=== PATIENT | female | born 1930 | race Caucasian/White ===

== ENCOUNTER 2016-06-12 14:00 | Inpatient (IN) | payer MEDICARE, BC ==
[~2016-06-12] VITALS: Ht 142.2 cm; Wt 40.7 kg
--- NOTE | ~2016-06-12 | OR ---
[facility] 85 Y [address] ROOM: [place] [address] LOCATION: G3N ADMIT DATE: 06/12/2016 OR/Procedure Report DISCHARGE DATE: FAMILY PHYSICIAN: PHYSICIAN, UNKNOWN ATTENDING PHYSICIAN: Myra FONTANA SURGEON: Durga James MD VIDEO GAME CREATOR: Eren Tirado CST/REFRIGERATOR REPAIR TECHNICIAN and Moshe Portillo. DATE OF PROCEDURE: 06/13/2016 PREOPERATIVE DIAGNOSES: Supracondylar right distal femoral periprosthetic fracture, rheumatoid arthritis. Generalized osteopenia. Well-fixed, well- aligned, previously well-functioning right total knee arthroplasty. POSTOPERATIVE DIAGNOSES: Supracondylar right distal femoral periprosthetic fracture, rheumatoid arthritis. Generalized osteopenia. Well-fixed, well- aligned, previously well-functioning right total knee arthroplasty. PROCEDURE PERFORMED: Open reduction and internal fixation of right distal femur supracondylar periprosthetic fracture. ANESTHESIA: General endotracheal anesthesia. ESTIMATED BLOOD LOSS: Less than 20 mL. TOURNIQUET TIME: Approximately 1 hour. IMPLANTS: Synthes right lateral distal femoral locking plate and multiple screws. COMPLICATIONS: None. SPECIMEN: None. INDICATION FOR PROCEDURE: Ms. Dove is an 85-year-old female who underwent a primary right total knee arthroplasty approximately [address] Fallon. This fracture occurred when the patient's leg "gave out," she was standing up from the toilet. She believes that the leg fractured before she fell. She had been experiencing preexisting right lower extremity radicular symptoms and has been in the midst of a workup for associated lumbar spine pathology and was scheduled to have an epidural steroid injection with Dr. Fallon later this week. The fracture propagates to within a few centimeters of the femoral component. A large femoral cement plug is noted preoperatively, and we hope to make use of this for fixation (given the extremely compromised qualitative and quantitative residual distal femoral bone stock). PATIENT'S NAME: KENNETH DOVE [facility] AGE: 85 Y [address] ROOM: [place] [address] LOCATION: [facility] ADMIT DATE: 06/12/2016 OR/Procedure Report DISCHARGE DATE: FAMILY PHYSICIAN: PHYSICIAN, UNKNOWN ATTENDING PHYSICIAN: Myra FONTANA Risks, benefits, limitations, and alternatives to this procedure have been thoroughly reviewed with the patient and her family members. We have also discussed potential adverse sequelae of the injury itself. We have specifically reviewed risks and implications of infection, deep venous thrombosis, pulmonary embolism, mortality, neurovascular compromise, malunion, nonunion, and potential need for salvage with distal femoral replacement rotating hinge arthroplasty. In fact, informed consent was granted prior to this procedure to undergo a distal femoral replacement arthroplasty if the fracture could not be adequately reduced and stabilized. DESCRIPTION OF PROCEDURE: The patient positioned supine after administration of anesthesia and prophylactic antibiotics. A well-padded pneumatic tourniquet was placed around her right proximal thigh, and her right lower extremity was prepped and draped with vigilant sterile technique. Fluoroscopic examination under anesthesia demonstrated approximately 5 cm of residual distal femur still affixed to the medial aspect of the prosthesis and approximately 4 cm of residual bone affixed to the lateral aspect of the femoral component. There was minimal comminution. There was no evident lytic lesion. The right lower extremity was elevated and exsanguinated with an Esmarch wrap and the pneumatic tourniquet was inflated. It should be noted that the patient is extremely short-statured. It is also noted that the patient is on prednisone and has been on chronic prednisone in the past (despite a recent several year hiatus off prednisone). The distal femur was approached through a direct lateral longitudinal incision. The underlying iliotibial band was sharply divided in line with the overlying skin incision. The vastus lateralis was mobilized off the intermuscular septum. Perforating vessels were vigilantly protected. The plate was first affixed to the distal fragment using the central screw hole over a guidewire set parallel to the articular surface at the level of the epicondyles. The plate was confirmed to be optimally reduced to the distal fragment. Supplemental distal fixation consisted of four additional locking screws. The distal fragment was subsequently reduced anatomically relative to the proximal fragment. Proximal fixation consisted of a single nonlocking bicortical screw followed by 3 additional bicortical locking screws. With the fracture anatomically reduced and stabilized, the patient was noted to have a 10-degree flexion contracture. Upon further consultation with the patient's family, her informs me that she had, in fact, developed a PATIENT'S NAME: KENNETH DOVE [facility] AGE: 85 Y [address] ROOM: [address] [address] LOCATION: [facility] ADMIT DATE: 06/12/2016 OR/Procedure Report DISCHARGE DATE: FAMILY PHYSICIAN: PHYSICIAN, UNKNOWN ATTENDING PHYSICIAN: Myra FONTANA significant flexion contracture subsequent to her right total knee arthroplasty. Optimal reduction and optimal position of all hardware was confirmed under AP, lateral, and oblique fluoroscopic imaging. The incision was thoroughly irrigated with bacteriostatic pulsatile saline lavage at this point as well as several times throughout the case. The iliotibial band was closed with multiple simple interrupted and [id number] interrupted #1 Vicryl sutures. The skin was closed with simple deep interrupted 0 Vicryl followed by superficial buried interrupted 2-0 Vicryl followed by surgical ernestina. The dressings consisted of Xeroform gauze followed by sterile gauze, ABD pads, and an Abilio wrap followed by a well-padded knee immobilizer. POSTOPERATIVE REHABILITATION PLAN: Nonweightbearing. No range of motion for one month. Immobilizer off when supine in bed. Immobilizer on at all other times. Strict heel decubitus ulcer prophylaxis with pillow behind the calf at all time and egg crate pad behind heel at all times. MD LORENA SMITH/shanta /[id number] d: 06/14/16 0639 t: 06/16/16 1750, OPERATIVE SUMMARY
--- NOTE | ~2016-06-12 | HP ---
PATIENT'S NAME: ANUJA LIRAORES Jono [facility] AGE: 85 Y [address] ROOM: [place] [address] LOCATION: [facility] ADMIT DATE: 06/12/2016 History & Physical DISCHARGE DATE: FAMILY PHYSICIAN: PHYSICIAN, UNKNOWN ATTENDING PHYSICIAN: Myra FONTANA DATE OF SERVICE: CHIEF COMPLAINT: Right femoral fracture. HISTORY OF PRESENT ILLNESS: The patient is an 85-year-old female with past medical history of rheumatoid arthritis, who presents here from [facility] in [place] with distal femoral fracture, right-sided. The patient reports that today she was at bathroom and she felt a sensation of pop and had a fall. She was unable to bear on her right side and was taken to [facility]. In the emergency department, she had an x-ray that shows distal femoral fracture of the right. The patient also had a CT lumbar and pelvis to further investigate other fracture. The CT of lumbar and pelvis did not show any acute fracture. The patient was transferred to our hospital for possible surgical intervention. The patient currently denies chest pain, shortness of breath, abdominal pain, nausea, vomiting, fever, chills, or cough. The patient reports that she lives at home, a farm house, and is moderately active at home. She reports that she is active at home and able to walk 2-3 flights of stairs a day without any shortness of breath or chest pain. She described that the only thing that keep her from being more active is her arthritic pain. Of note, the patient has had recent history of cholecystitis. She was admitted in the hospital at [facility] and has had extensive workup including cardiac ones, which yielded negative cardiac workup. She was diagnosed with cholecystitis on what it to seems appears to be secondary to ultrasound. The patient was discharged from [facility] in stable condition, and was told to be on low fat diet. MEDICATIONS: 1. Tramadol. 2. Lipitor 10 mg daily. SURGICAL HISTORY: Has had a couple of knee surgeries in the past and hip surgery. FAMILY HISTORY: 1. Mother had breast cancer. PATIENT'S NAME: ANUJA LIRAORES Jono [facility] AGE: 85 Y [address] ROOM: [place] [address] LOCATION: [facility] ADMIT DATE: 06/12/2016 History & Physical DISCHARGE DATE: FAMILY PHYSICIAN: PHYSICIAN, UNKNOWN ATTENDING PHYSICIAN: Myra FONTANA 2. Father had Alzheimer's. SOCIAL HISTORY: She does not drink or smoke. She lives in a farm house, she lives with her . ALLERGIES: SHE IS ALLERGIC TO IBUPROFEN AND TYLENOL AND EXCEDRIN. REVIEW OF SYSTEMS: All review of systems was evaluated, all negative except what is stated in HPI. PHYSICAL EXAMINATION: VITAL SIGNS: Vital signs stable. GENERAL: The patient is alert and oriented, in no acute distress. HEENT: Head: Atraumatic, normocephalic. Eyes: Extraocular muscles intact. Sclerae nonicteric. NECK: No JVD. Supple. CHEST: Clear to auscultation bilaterally. No rhonchi, rales, or wheezes. HEART: Regular rate and rhythm. Normal S1, S2. No murmur, rubs, or gallops. ABDOMEN: Soft, nontender, and nondistended. Bowel sounds present. SKIN: Warm to touch. COMPUTER OPERATIONS SUPERVISOR: Alert and oriented x3. Motor and sensory grossly intact. MUSCULOSKELETAL: Unable to move around her right lower extremity due to pain. DATA: Lab drawn today from [facility]: White blood cell count of 9.89, hemoglobin of 12.6, and platelets of 460. Sodium of 142, potassium of 3.3, chloride of 107, CO2 of 24, BUN of 16, and creatinine 0.6. ASSESSMENT AND PLAN: The patient is an 85-year-old female with past medical history of rheumatoid arthritis, who presents here with right distal femoral fracture. 1. Right distal femoral fracture. X-ray done at [facility] shows right femur distal fracture. The patient currently is being placed on PLANNING INTERN pump for pain control. The patient's comorbidity currently is only rheumatoid arthritis. The patient does not have history of hypertension, history of coronary artery disease, heart failure, and arrhythmia. We will acquire a 12-lead EKG. The patient is low risk factor for cardiac event for the proposed moderate-risk factor surgery. The patient understands the risk factors. Except for EKG, there is no more workup needed for surgery. The patient is stable for surgery. 2. Hypokalemia. We will give potassium supplement. 3. Rheumatoid arthritis. The patient is stable, the patient is currently PATIENT'S NAME: [facility] AGE: 85 Y [address] ROOM: [address] [address] LOCATION: [facility] ADMIT DATE: 06/12/2016 History & Physical DISCHARGE DATE: FAMILY PHYSICIAN: PHYSICIAN, UNKNOWN ATTENDING PHYSICIAN: Myra FONTANA not taking any medication. Has in the past been on Rituxan for her rheumatoid arthritis, but has been off it for a while. We will continue to follow clinically. 4. Hyperlipidemia. Continue Lipitor. 5. Pain. Acute pain secondary to fracture on PLANNING INTERN pump. Greater than 30 minutes was spent on patient's care. I have reviewed the chart and lab works. Assessment and plan was discussed with the patient and family. The patient is full code on admission. MD RAMÓN JOSEPH/shanta /[id number] D: [id number] T: [id number] HISTORY & PHYSICAL
--- NOTE | ~2016-06-12 | CON ---
PATIENT'S NAME: KENNETH DOVE [facility] AGE: 85 Y [address] ROOM: [address] [address] LOCATION: G3N ADMIT DATE: 06/12/2016 Consultation DISCHARGE DATE: FAMILY PHYSICIAN: PHYSICIAN, UNKNOWN ATTENDING PHYSICIAN: Myra HESTER DATE OF CONSULTATION: 06/12/2016 REFERRING PHYSICIAN: KIMANI REYNOLDS MD HISTORY OF PRESENT ILLNESS: Dr. Hester has requested that I provide an inpatient consultation on this 85- year-old female who was transferred from an outlying facility in [place] after having been diagnosed with a right distal femur periprosthetic fracture. The patient was referred to me by Dr. Giordano who had had the patient referred to him by Dr. Fallon who had been called by the hospital in [place]. Dr. Fallon was called initially due to the fact that he replaced Ms. Dove's right knee 1 year ago and due to the fact that he has been caring for the patient's preexisting right lower extremity discomfort and dysfunction. Dr. Fallon referred the patient to Dr. Giordano due to the complexity of the case. Dr. Giordano referred the patient to me due to concerns that this patient might require a distal femoral replacement rotating hinge revision knee arthroplasty (based upon the qualitative and quantitative bone deficits at the residual distal femur). The patient reports that analgesia has been adequate. Her knee recovered well after her knee replacement 1 year ago. However, she has been experiencing right hip and thigh discomfort over the past several months and a vague sense of weakness in the right lower extremity. She was evaluated by Dr. Fallon last week. Dr. 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 Arrangements were made for the patient to follow up with Dr. Fallon later this week for a lumbar epidural steroid injection. Her preexisting right lower extremity discomfort and dysfunction became severe enough last week that she started to use a wheelchair. Prior to that, she had been using a cane. Of note, none of this pain was focused at the right knee. The patient states that she felt a spontaneous "snap" at her right knee while she was getting off the toilet this morning. The leg had been feeling progressively "weak" the night before. She was unable to get up. She states that her right leg "buckled underneath me." She denies pain elsewhere as a result of the incident. Her past medical history is significant for longstanding rheumatoid arthritis. She was on Rituxan until 2 years ago. She had been on prednisone for many years before that. Prednisone was restarted 1 week ago. She had been off PATIENT'S NAME: KENNETH DOVE [facility] AGE: 85 Y [address] ROOM: [address] [place] [id number] LOCATION: [facility] ADMIT DATE: 06/12/2016 Consultation DISCHARGE DATE: FAMILY PHYSICIAN: PHYSICIAN, UNKNOWN ATTENDING PHYSICIAN: Myra HESTER prednisone for several years prior to starting prednisone 1 week ago. Her material scheduler has been Dr. Sánchez over the past few decades. Due to Dr. Sánchez's relocation, she recently saw an unspecified material scheduler in [place], [place]. She does not recall the name of this material scheduler. She has seen him only on one occasion. She has not been on any antirheumatoid medications (except for prednisone) over the last 2 years. Again, she had been off prednisone for at least 2 years prior to reinitiating it 1 week ago. ALLERGIES: TYLENOL, EXCEDRIN, AND IBUPROFEN. MEDICATIONS ON ADMISSION: 1. Prednisone. 2. Lipitor. 3. Ultram. 4. Ativan. 5. Folic acid. 6. Aloe vera. PAST MEDICAL HISTORY: Significant for rheumatoid arthritis and anemia. PAST SURGICAL HISTORY: Open reduction and internal fixation, left hip (performed in [place] by Dr. Jovel many years ago). Right total hip arthroplasty (performed in [place] by Dr. Lilly several years ago). Right total knee arthroplasty (performed by Dr. Fallon 1 year ago). SOCIAL HISTORY: The patient lives in a private residence with her in [place]. She has been using a cane over the past several months, but converted to a wheelchair last week due to putative progressive lumbar spine disease (and associated preexisting right lower extremity discomfort and weakness). She is accompanied this evening by her and son. Nonsmoker. REVIEW OF SYSTEMS: She denies chest pain or shortness of breath. She denies history of deep venous thrombosis or pulmonary embolism. She denies numbness or paresthesias in her right lower extremity. She denies pain in her other 3 extremities as a result of the fall. She has preexisting discomfort and deformity in all digits of both hands associated with her longstanding rheumatoid arthritis. PHYSICAL EXAMINATION: PATIENT'S NAME: KENNETH DOVE [facility] AGE: 85 Y [address] ROOM: [place] [address] LOCATION: [facility] ADMIT DATE: 06/12/2016 Consultation DISCHARGE DATE: FAMILY PHYSICIAN: PHYSICIAN, UNKNOWN ATTENDING PHYSICIAN: Myra HESTER GENERAL: The patient is a short-statured, slender, elderly female, who is in no distress. VITAL SIGNS: Respiratory rate 16 and nonlabored. EXTREMITIES: There is swelling and tenderness at the supracondylar region of the right distal femur. There is a well-healed midline incision at the right knee. There is no erythema or abnormal warmth at the right knee. There is no swelling or tenderness at the right calf or right ankle. 1+ dorsalis pedis pulse. There is no peripheral edema in the right lower extremity. She is able to actively dorsiflex and plantar flex the right ankle with 4/5 motor strength. There are no active skin lesions at the right thigh or knee. IMAGING DATA: Outside oblique radiographs of the right knee as well as AP and lateral radiographs of the entire right femur (obtained here after admission) demonstrate a well-fixed, well-aligned right total hip arthroplasty with no radiolucencies. There is a well-fixed, cemented, posterior stabilized right total knee arthroplasty with a long femoral cement plug. There is severe generalized osteopenia. There is a periprosthetic distal femur fracture, which extends down to within a few centimeters of the femoral articular surface and very close to the femoral box. On one of these views, it appears conceivable that the femoral component may have dislodged from the medial femoral condyle bone. However, this is not confirmed on additional views. In any event, this is a very low supracondylar periprosthetic fracture. In addition, there was a nondisplaced sagittal fracture, which extends several centimeters proximally within the femoral shaft fragment. IMPRESSION: Periprosthetic right supracondylar distal femur fracture above a well-fixed total knee arthroplasty. Severe generalized osteopenia. Longstanding rheumatoid arthritis. Well-fixed, well-aligned ipsilateral uncemented total hip arthroplasty. History of anemia. Preexisting right thigh and hip pain (consistent with lumbar spine pathology) (presently being worked up and managed by Dr. Fallon). RECOMMENDATIONS: I have discussed the etiology and natural history of this condition. I have discussed the complexity of this case with emphasis on the qualitative and quantitative osseous deficits related to the very small amount of residual bone attached to the femoral component. I have recommended fluoroscopic examination under anesthesia followed by anticipated attempted open reduction and internal fixation. They understand that intraoperative circumstances may necessitate that we perform a revision total knee arthroplasty (extracting her well-fixed tibial component so that a distal femoral replacement rotating hinge arthroplasty can be performed) (if PATIENT'S NAME: KENNETH DOVE [facility] AGE: 85 Y [address] ROOM: [address] [address] LOCATION: [facility] ADMIT DATE: 06/12/2016 Consultation DISCHARGE DATE: FAMILY PHYSICIAN: PHYSICIAN, UNKNOWN ATTENDING PHYSICIAN: Myra HESTER necessitated if there is insufficient bone attached to the femoral component to permit acceptable fixation). They understand that weightbearing will need to be restricted for 2 months. I will recommend this even if a distal femoral replacement is performed due to the nondisplaced fracture extending several centimeters into the distal femoral shaft. We have discussed technical aspects of surgery as well as risks and limitations thereof. We have specifically discussed the potential for infection, deep venous thrombosis, pulmonary embolism, malunion, nonunion, stiffness, loosening of the component, and potential need for further surgery. I have emphasized that conversion to distal femoral replacement rotating hinge total knee arthroplasty will be necessary if the patient develops a malunion or nonunion. We have discussed risks associated with blood transfusion, and they tarun consent to receive a transfusion if necessary. The patient has been placed at bedrest. Mechanical DVT prophylaxis and incentive spirometry have been initiated. We will proceed with surgery tomorrow afternoon (June 13) (pending medical clearance and operating room availability). MD LORENA SMITH/shanta /[id number] CC: Mir Renteria MD d: 06/13/16724 t: 06/16/16 1747, CONSULTATION REPORT
--- NOTE | ~2016-06-12 | DS ---
PATIENT'S NAME: AN[facility]JA [facility] AGE: 86 Y [address] ROOM: [place] [address] LOCATION: [facility] ADMIT DATE: 06/12/2016 Discharge Summary DISCHARGE DATE: 06/15/2016 FAMILY PHYSICIAN: Veronica Sorto MD ATTENDING PHYSICIAN: Kimani Reynolds PRIMARY DIAGNOSES: Supracondylar right distal femoral periprosthetic fracture. Well-fixed, well-aligned, previously well functioning right total knee arthroplasty. SECONDARY DIAGNOSES: Include, 1. Rheumatoid arthritis. 2. Preoperative anemia. PROCEDURE PERFORMED: Open reduction and internal fixation of right distal femur supracondylar periprosthetic fracture. HISTORY: The patient is an 85-year-old female, who underwent a primary right total knee arthroplasty approximately one year ago with Dr. Fallon. This fracture occurred when the patient's leg "gave out," when she was standing up from a toilet. She believes that the leg fractured before she fell. Please refer to her consultation notes as well as her admission history and physical. HOSPITAL COURSE: The patient underwent the above specified procedure on 06/13/2016 without complications. General endotracheal anesthesia was utilized. She received 24 hours of perioperative prophylactic antibiotics. She remained hemodynamically stable and neurovascularly intact throughout the entire hospital course. Her postoperative deep venous thrombosis prophylaxis consisted of Lovenox 30 mg subcutaneously daily (stop date of July 25, 2016), early mobilization, and pneumatic compression devices. She received daily physical therapy for gait training and transfer training. On her date of discharge, the incisions were healing well and showed no signs of infection. DISPOSITION: Swing bed. DISCHARGE DIET: Regular discharge. ACTIVITY: The patient is to be strict nonweightbearing of the left lower extremity. She is to wear her brace at all times except when supine in bed. There is to be no dressing changes. She is to notify doctor immediately, if she experiences any increased pain, fevers, chills, erythema, or drainage. DISCHARGE MEDICATIONS: 1. Lovenox 30 mg subcutaneously daily, stop date is scheduled for July 25, 2016. PATIENT'S NAME: ANUJA [facility] AGE: 86 Y [address] ROOM: [place] [address] LOCATION: [facility] ADMIT DATE: 06/12/2016 Discharge Summary DISCHARGE DATE: 06/15/2016 FAMILY PHYSICIAN: Veronica Sorto MD ATTENDING PHYSICIAN: Kimani Reynolds 2. Tramadol 50 mg, take 1-2 tablets p.o. every 4 hours as needed for pain. 3. She is then instructed to continue all her other preadmission medications as instructed by her Internal Medicine physician. FOLLOWUP: Followup date is scheduled for one week subsequent to dismissal from the hospital for initial postoperative evaluation. SYD GARCIA FOR KIMANI REYNOLDS MD TLB/modl /[id number] d: 06/28/16 1152 t: 06/30/16 1039, DISCHARGE SUMMARY
[2016-06-12] MEDS ORDERED: DELTASONE5 MG PO (17:55)
[2016-06-12] MEDS ORDERED: LIPITOR40 MG PO (17:56)
[2016-06-12] MEDS ORDERED: ULTRAM50 MG PO (17:56)
[2016-06-12] MEDS ORDERED: ATIVAN 0.5MG0.5 MG PO (17:57)
[2016-06-12] MEDS ORDERED: ONE DAILY FOR1 EAC3 PO (17:58)
[2016-06-12] MEDS ORDERED: ALOE VERA25 MG PO (17:59)
--- NOTE | 2016-06-12 18:21 | NUR ---
Patient is very pleasant 85 yo female admitted this evening for fractured right femur just above / at the right knee prosthesis. patient states she was in the bathroom, going from the toilet to the sink, states he right leg went behind her, she heard a pop and fell. states "I think it broke before I fell." patient has saline lock in right forearm without erythema or edema noted at site. patient does have a reagan patent with clear yellow drainage. education is given as documented patient denies questions. pneumatics are on left foot. patient states she doesn't think she'll be able to tolerate them during the night with her RLS. call light is within reach. denies questions. fall and allergy bracelets are on. report is given to KIRILL Mariano.
--- NOTE | 2016-06-12 19:19 | NUR ---
Significant Event: Admitted @ 1610. CSM WNL. R) leg elevated on pillow. IV/AURICULAR DETOXIFICATION SPECIALIST started with Morphine. Rates pain @ 3. Siegel patent. Sips water. Family @ bedside. Follow up:
--- NOTE | 2016-06-13 03:18 | NUR ---
Significant Event: A/O X 3. IV FLUIDS INFUSING. SHAREMILKER MORPHINE FOR PAIN CONTROL. PAIN RATE 7/5/0/1O. DISCOMFORT WITH REPOSITIONING. PERMIT IS SIGNED. PRE-OP CHECK LIST STARTED. NPO AFTER MIDNOC FOR SURGERY AROUND NOON TODAY. BILATERAL FOOT PUMPS TO FEET. ICE BAG TO RIGHT FEMUR AREA. HEELS ELEVATED OFF OF BED. INCENTIVE SPIROMETER USAGE 750-1000. ON HOURLY SAT AND ETCO2 MONITORING. BEEN REPOSITIONED IN BED WITH 2 ASSIST. FAMILY AT BEDSIDE. QUIROS CATHETER PATENT. Follow up:
--- NOTE | 2016-06-13 09:00 | NUR ---
Introduced self/role to patient. She lives in [place], [place]. Her hope is to rehab at the [facility] in [place]. Will have to wait until tomorrow to fax referral since will need information following surgery. Wrote my name on her marker board, will continue to follow.
[2016-06-13 11:20] LABS: INR - (THERAPEUTIC) 1.02 (0.92-1.07); PROTIME 10.7 SECONDS (9.8-11.4)
--- NOTE | 2016-06-13 19:08 | NUR ---
Pt here from PACU at 1730. She is alert and awake. She had spinal anesthetic. Sensation to thigh but can feel feet slightly. States no pain. Rt leg has large dry dressing, immobilizer on. Strong Rt pedal pulse, toes juan well. Pt has reagan with clear yellow urine. pt has Morphine SUPERVISOR CELL EFFICIENCY to use for pain. Rt ankle rests on small egg crate. Family here.
--- NOTE | 2016-06-14 05:10 | NUR ---
Normal sensation on lower extremity. No ambulation done during shift. Pt hypertensive throughout shift. SBP>175 before 2215 and then went down to 160s. Immobilizer left leg. Dressing c/d/i. Pain ratings>5. On CUP MACHINE OPERATOR morphine. Folley catheter on, need to be taken out this am. On 1L O2. Family at bedside.
[2016-06-14 05:29] LABS: HEMATOCRIT 30.7 % (30.0-46.0); HEMOGLOBIN 10.2 g/dL (10.0-15.0)
--- NOTE | 2016-06-14 06:07 | NUR ---
I have reviewed all of SN Nidia from [facility]'s charting on this patient and I agree with it.
--- NOTE | 2016-06-14 10:10 | NUR ---
Introduce self/role to patients and son. Obtained family doctor Dr. Veronica Horvath-Allen. They were under the impression she would be here a few more days. I will start the referral to [facility] #[phone]. Reviewed charting again and it was written for placement on 06/15. 1025 Spoke to Monet at the swing bed. Faxed referral #[phone]. Followed up with patient and family about dismissal tomorrow possibly. 1105 Monet called back and they can accept, just need to see therapy notes (not in the chart yet). Will fax later. Doc to doc will be called to the clinic, unsure who will be oncall #[phone]. Updated charge nurse on dismissal. Started packet, placed orders on the chart. Followed up with patient and family. They will plan to transport. They are concerned she is not being kept here long enough. I suggested they bring those concerns up to Dr James, which they said they were going to see today. Dr James will have to give his blessing before we can send her. They had no other needs at this time. Doc to doc number and nurse to nurse number place on the chart. Also a sticky note about dismissal plans. Nurse Saundra informed. Patient reported to me she has had no BM for 3-4 days, this was communicated to Saundra.
--- NOTE | 2016-06-14 13:18 | NUR ---
Significant Event: Weaned from CARAMEL CANDY MAKER HELPER today. Patient very drowsy. Ultram given for pain and Nucynta for break through pain. Immobilizer on at all times. 2 assist with pivot transfer. Robbin is to remain in for transfer tomorrow to [facility]. It is a [address]ih son[address] Dressing is C/D/I. VSS. CSM WNL. Transferring tomorrow at 1000. Follow up:
[2016-06-14 15:12] LABS: ALBUMIN 2.5 gm/dL (3.5-5.0); ANION GAP 9.6 (10.0-19.0); BLOOD UREA NITROGEN 13 mg/dL (6-24); CALCIUM 8.1 mg/dL (8.5-10.5); CHLORIDE 100 mMol/L (96-110); CO2 31 mMol/L (22-32); CREATININE 0.7 mg/dL (0.5-1.1); ESTIMATED GFR (MDRD EQUATION) > 60; MAGNESIUM 1.9 mg/dL (1.8-2.6); PHOSPHORUS 3.1 mg/dL (2.5-4.9); POTASSIUM 3.6 mMol/L (3.7-5.1); SODIUM 137 mMol/L (135-145)
--- NOTE | 2016-06-15 02:50 | NUR ---
Shift Summary: Patient is a two assist to transfer. Good pain control with 100mg Ultram at 2142. Right leg in immobilizer at all times. Has reagan that is to remain in for transport to [facility] in [place]. Leaving at 10am per family vehicle.
[2016-06-15 05:47] LABS: HEMOGLOBIN 10.2 g/dL (10.0-15.0)
--- NOTE | 2016-06-15 08:20 | NUR ---
Spoke to Ceasar charge nurse, she will fax orders for me when they are complete. Margy Dorantes completed doc to doc call. 1055 Spoke to Monet at Swing, should be leaving soon awaiting doctors final blessing.
--- NOTE | 2016-06-15 10:07 | NUR ---
PATIENT UP TO CHAIR WITH 2 ASSIST. NWB RIGHT LEG. IMMOBILIZER TO RIGHT KNEE. CSM ADEQUATE. DRY SKIN WITH SOME BRUISING NOTED. RESPS SHALLOW, CLEAR DIMINISHED LUNGS. DULCOLAX AT 0650 WITH SMALL BM. USING PLATFORM WALKER, CHULA PATENT. DRESSING D/I TO RIGHT THIGH. NUCYNTA AT 0930 FOR PAIN.
--- NOTE | 2016-06-15 11:25 | NUR ---
patient dismissed and transfering to [facility]. report given to KIRILL Marin. belongings all sent with patient and and son. transfer packet sent with family.
== END 2016-06-15 11:20 | disposition swing bed (61) | DRG 480 ==
LOC: G3N 16:00
PROVIDERS: Anesthesiology; Orthopaedic Surgery; Physician Assistant; ADMIT Internal Medicine
PROC: 0QSB04Z Reposition Right Lower Femur with Internal Fixation Device, Open Approach (ICD-10-PCS; principal; 2016-06-13)
DX: M97.01XA Periprosthetic fracture around internal prosthetic right hip joint, initial encounter (principal); G92 Toxic encephalopathy; Y83.1 Surgical operation with implant of artificial internal device as the cause of abnormal reaction of the patient, or of later complication, without mention of misadventure at the time of the procedure; M06.9 Rheumatoid arthritis, unspecified; M85.80 Other specified disorders of bone density and structure, unspecified site; E78.5 Hyperlipidemia, unspecified; E87.6 Hypokalemia; K81.9 Cholecystitis, unspecified; G25.81 Restless legs syndrome; G47.00 Insomnia, unspecified; Z79.52 Long term (current) use of systemic steroids; Z96.641 Presence of right artificial hip joint; T40.2X5A Adverse effect of other opioids, initial encounter
CPT/HCPCS: C1713; J0690; J1650; J1885; J2270; J2795; J7030; J7120; J7512